=== PATIENT | male | born 1965 | race Caucasian/White ===

== ENCOUNTER 2023-12-11 08:52 | Outpatient (CLI) | payer BC | END 2023-12-11 08:53 | disposition home or self-care (01) | LOC: CSHLAB 08:52 | PROVIDERS: ATTEND Otolaryngology Plastic Surgery within the Head & Neck | DX: Z01.818 Encounter for other preprocedural examination (principal); J38.1 Polyp of vocal cord and larynx; R49.0 Dysphonia | CPT/HCPCS: 93005; 93010 ==

== ENCOUNTER 2023-12-24 05:27 | Day surgery (SDC) | payer BC ==
[2023-12-11 09:14] VITALS: BMI 29.0
[2023-12-24] MEDS ORDERED: Midazolam HCl 2 mg/2 ml Vial ONE ×2 (07:21→08:41)
[2023-12-24] MEDS ORDERED: Famotidine/PF 20 mg/2ml Vial ONE (07:21)
[2023-12-24] MEDS ORDERED: Propofol 1,000 MG/100 ML VIAL IV ONE (07:25)
[2023-12-24] MEDS ORDERED: EPINEPHrine 1 MG/ML VIAL ONE (08:33)
[2023-12-24] MEDS ORDERED: PROPOFOL 40 ML ONE (08:41)
[2023-12-24] MEDS ORDERED: fentaNYL 50 mcg/mL 1 mL Vial ONE ×2 (08:41→09:47)
[2023-12-24] MEDS ORDERED: Ondansetron PF 4 MG/2 ML Vial ONE (08:41)
[2023-12-24] MEDS ORDERED: Dexamethasone 20 MG/5 ML VIAL ONE (08:41)
[2023-12-24] MEDS ORDERED: Dexmedetomidine 200 MCG/2 ML VIAL ONE (08:41)
[2023-12-24] MEDS ORDERED: Glycopyrrolate 0.2 MG/ML 5 ML SYRINGE ONE (08:50)
[2023-12-24] MEDS ORDERED: HYDROcodone/Acetaminophen 5/325 mg Tablet ONE (10:34)
== END 2023-12-24 11:25 | disposition home or self-care (01) ==
LOC: CSHSDC 05:27
PROVIDERS: ATTEND Otolaryngology Plastic Surgery within the Head & Neck
PROC: 0CBT8ZZ Excision of Right Vocal Cord, Via Natural or Artificial Opening Endoscopic (ICD-10-PCS; principal; 2023-12-24)
DX: J38.1 Polyp of vocal cord and larynx (principal); J30.1 Allergic rhinitis due to pollen; K21.9 Gastro-esophageal reflux disease without esophagitis; I10 Essential (primary) hypertension; E78.5 Hyperlipidemia, unspecified; Z79.51 Long term (current) use of inhaled steroids; Z79.899 Other long term (current) drug therapy
CPT/HCPCS: 88305; 88331; J0171; J1100; J2250; J2405; J2704; J3010; J3490